=== PATIENT | female | born 1975 | race African-American/Black ===

== ENCOUNTER 2019-08-18 15:07 | Emergency (ER) | payer MEDICARE, OTHER ==
[~2019-08-18] VITALS: Ht 167.6 cm; Wt 63.1 kg
[2019-08-18 15:22] VITALS: BP 130/72
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
== END 2019-08-18 18:32 | disposition home or self-care (01) ==
LOC: ER 15:07
DX: S13.4XXA Sprain of ligaments of cervical spine, initial encounter (principal); Z98.890 Other specified postprocedural states; R51 Headache; V89.2XXA Person injured in unspecified motor-vehicle accident, traffic, initial encounter; Y93.89 Activity, other specified; Y92.413 State road as the place of occurrence of the external cause; Y99.8 Other external cause status
CPT/HCPCS: 70450; 72125; 99285